=== PATIENT | female | born 1990 | race Caucasian/White ===

== ENCOUNTER 2017-01-26 08:30 | Emergency (ER) | payer OTHER ==
[~2017-01-26] VITALS: Ht 154.9 cm; Wt 65.0 kg
[~2017-01-26 08:30] MED LIST: AMOXICILLIN500 MG OR; AMOXICILLIN500 MG PO; AUGMENTIN500TAB PO; AUGMENTIN875TAB PO; BACTRIM DS1 TAB PO; CIPROFLOXACN500 MG PO; DARVOCET-N 100100 MG OR; KEFLEX500 M1 PO; LORTAB 7.5 PO; METRONIDAZOL500 MG PO; NO HOME MEDS; PAXIL PO; PYRIDIUM200 MG PO; ULTRAM50 M1 PO; WELLBUTRIN150 M1 PO
[2017-01-26] MEDS ORDERED: MOTRIN800 MG PO (08:50)
[2017-01-26] MEDS ORDERED: PREDNISONE10 MG PO (08:50)
[2017-01-26] MEDS ORDERED: BENADRYL 50MG C50 MG PO (08:50)
[2017-01-26] MEDS ORDERED: AFRIN 12 HOUR0.05 % (08:50)
[2017-01-26 08:53] VITALS: BP 113/77
== END 2017-01-26 08:58 | disposition home or self-care (01) | DRG 153 ==
LOC: ED 08:30
DX: J06.9 Acute upper respiratory infection, unspecified (principal); R09.81 Nasal congestion; L29.9 Pruritus, unspecified

== ENCOUNTER 2017-01-30 18:17 | Emergency (ER) | payer OTHER ==
[~2017-01-30] VITALS: Ht 154.9 cm; Wt 60.0 kg
[~2017-01-30 18:17] MED LIST changes: +AFRIN 12 HOUR0.05 %; +BENADRYL 50MG C50 MG PO; +MOTRIN800 MG PO; +PREDNISONE10 MG PO
[2017-01-30 19:09] LABS: INFLUENZA A NONE DETECTED (NONE DETECT); INFLUENZA B NONE DETECTED (NONE DETECT)
[2017-01-30] MEDS ORDERED: ZPAK PO (19:36)
[2017-01-30] MEDS ORDERED: ROBITUSSIN AC10 ML PO (19:36)
[2017-01-30 19:45] VITALS: BP 118/75
== END 2017-01-30 19:45 | disposition home or self-care (01) | DRG 203 ==
LOC: ED 18:17
DX: J40 Bronchitis, not specified as acute or chronic (principal); R06.2 Wheezing; R05 Cough

== ENCOUNTER 2017-06-10 14:54 | Emergency (ER) | payer OTHER ==
[~2017-06-10] VITALS: Ht 154.9 cm; Wt 60.0 kg
[~2017-06-10 14:54] MED LIST changes: +ROBITUSSIN AC10 ML PO; +ZPAK PO
[2017-06-10 15:56] LABS: URINE BILIRUBIN - DIPSTICK NEGATIVE (NEGATIVE); URINE BLOOD DIPSTICK NEGATIVE (NEGATIVE); URINE CLARITY CLEAR; URINE COLOR YELLOW; URINE GLUCOSE - DIPSTICK NEGATIVE (NEGATIVE); URINE KETONE NEGATIVE (NEGATIVE); URINE LEUK ESTERASE NEGATIVE (Negative); URINE NITRITE - DIPSTICK NEGATIVE (Negative); URINE PROTEIN - DIPSTICK NEGATIVE (NEG-TRACE); URINE SPECIFIC GRAVITY 1.015; URINE UROBILINOGEN - DIPSTICK 0.2 E.U./dL (0.2)
[2017-06-10 15:58] LABS: BARBITURATES NEGATIVE (NEGATIVE); COCAINE NEGATIVE (NEGATIVE); METHADONE NEGATIVE (NEGATIVE); OXCYCODONE NEGATIVE (NEGATIVE); TETRAHYDROCANNABIONOL NEGATIVE (NEGATIVE); TRICYLIC ANTIDEPRESSANTS NEGATIVE (NEGATIVE)
[2017-06-10 15:59] LABS: HEMATOCRIT 47.1 % (37.0-47.0); HEMOGLOBIN 15.7 g/dl (12.0-16.0); IMMATURE GRANULOCYTES 0.4 % (0.0-1.0); MEAN CELL VOLUME 90.6 fL CALC (80.0-100.0); MEAN CORPUSCULAR HGB 30.2 pG CALC (26.0-32.0); MEAN CORPUSCULAR HGB CONC 33.3 g/L CALC (32.0-36.0); NEUT# 5.93 thou/uL (2.00-7.15); RED BLOOD COUNT 5.2 mill/uL (4.20-5.60); RED CELL DISTRI WIDTH 12.3 % (11.5-15.5)
[2017-06-10 16:04] LABS: ALKALINE PHOSPHATASE 59 u/l (38-126); ANION GAP 18 (6-22 (CALC)); BILIRUBIN, TOTAL 0.8 mg/dL (0.0-1.4); BUN 9 mg/dL (7-17); BUN/CREATININE RATIO 13 (12-20 (CALC)); CALCIUM 10.3 mg/dL (8.4-10.2); CARBON DIOXIDE 28 mmol/l (22-30); CHLORIDE 105 mmol/l (95-108); CREATININE 0.7 mg/dL (0.5-1.0); GFR > 60 ML/MIN (>=60 (CALC)); GFR FOR AFR.AMER. > 60 ML/MIN (>=60 (CALC)); GLUCOSE 91 mg/dL (65-105); LIPASE 50 u/l (23-300); POTASSIUM 4.4 mmol/l (3.5-5.1); SGOT/AST 29 u/l (14-36); SGPT/ALT 40 u/l (9-52); SODIUM 147 mmol/l (137-146); TOTAL PROTEIN 7.9 g/dL (6.3-8.2)
[2017-06-10 16:48] VITALS: BP 101/56
== END 2017-06-10 17:04 | disposition home or self-care (01) | DRG 103 ==
LOC: ED 14:54
PROVIDERS: Family Medicine
DX: R51 Headache (principal)

== ENCOUNTER 2017-06-16 14:12 | Day surgery (SDC) | payer OTHER ==
[~2017-06-16] VITALS: Ht 154.9 cm; Wt 57.2 kg
[~2017-06-16 14:12] MED LIST changes: +VALTREX500 MG PO
[2017-06-16 18:02] VITALS: BP 98/61
== END 2017-06-16 17:25 | disposition home or self-care (01) | DRG 392 ==
LOC: ENDO 14:12 → ORM 17:15 → ENDO 17:25 → ORM 18:55
PROVIDERS: ATTEND Internal Medicine Gastroenterology
PROC: 0DB98ZX Excision of Duodenum, Via Natural or Artificial Opening Endoscopic, Diagnostic (ICD-10-PCS; principal; 2017-06-16)
PROC: 0DBE8ZX Excision of Large Intestine, Via Natural or Artificial Opening Endoscopic, Diagnostic (ICD-10-PCS; 2017-06-16)
DX: K21.9 Gastro-esophageal reflux disease without esophagitis (principal); K22.8 Other specified diseases of esophagus; R10.13 Epigastric pain; R19.7 Diarrhea, unspecified; K59.00 Constipation, unspecified; R11.0 Nausea; R14.0 Abdominal distension (gaseous); K44.9 Diaphragmatic hernia without obstruction or gangrene; K29.50 Unspecified chronic gastritis without bleeding; K64.8 Other hemorrhoids; K64.4 Residual hemorrhoidal skin tags; K57.30 Diverticulosis of large intestine without perforation or abscess without bleeding; I10 Essential (primary) hypertension; E11.9 Type 2 diabetes mellitus without complications; Z83.71 Family history of colonic polyps; Z80.0 Family history of malignant neoplasm of digestive organs

== ENCOUNTER 2017-10-30 15:32 | Emergency (ER) | payer OTHER ==
[~2017-10-30] VITALS: Ht 154.9 cm; Wt 56.0 kg
[2017-10-30 16:54] LABS: HEMATOCRIT 45.2 % (37.0-47.0); HEMOGLOBIN 14.9 g/dl (12.0-16.0); IMMATURE GRANULOCYTES 0.3 % (0.0-1.0); MEAN CELL VOLUME 91.5 fL CALC (80.0-100.0); MEAN CORPUSCULAR HGB 30.2 pG CALC (26.0-32.0); NEUT# 4.47 thou/uL (2.00-7.15); RED BLOOD COUNT 4.94 mill/uL (4.20-5.60); RED CELL DISTRI WIDTH 12.5 % (11.5-15.5)
[2017-10-30 17:20] LABS: ALBUMIN 4.8 g/dL (3.2-5.0); ALKALINE PHOSPHATASE 59 u/l (38-126); ANION GAP 17 (6-22 (CALC)); BILIRUBIN, TOTAL 0.6 mg/dL (0.0-1.4); BUN 15 mg/dL (7-17); BUN/CREATININE RATIO 20 (12-20 (CALC)); CALCIUM 10.3 mg/dL (8.4-10.2); CARBON DIOXIDE 27 mmol/l (22-30); CHLORIDE 103 mmol/l (95-108); CREATININE 0.8 mg/dL (0.5-1.0); GFR > 60 ML/MIN (>=60 (CALC)); GFR FOR AFR.AMER. > 60 ML/MIN (>=60 (CALC)); GLUCOSE 91 mg/dL (65-105); LIPASE 114 u/l (23-300); POTASSIUM 3.7 mmol/l (3.5-5.1); SGOT/AST 37 u/l (14-36); SGPT/ALT 44 u/l (9-52); SODIUM 143 mmol/l (137-146); TOTAL PROTEIN 7.8 g/dL (6.3-8.2)
[2017-10-30 17:27] LABS: URINE BILIRUBIN - DIPSTICK NEGATIVE (NEGATIVE); URINE BLOOD DIPSTICK NEGATIVE (NEGATIVE); URINE COLOR YELLOW; URINE GLUCOSE - DIPSTICK NEGATIVE (NEGATIVE); URINE KETONE TRACE mg/dL (NEGATIVE); URINE LEUK ESTERASE NEGATIVE (NEGATIVE); URINE NITRITE - DIPSTICK NEGATIVE (Negative); URINE PH 6.5 (4.5-8.0); URINE PROTEIN - DIPSTICK NEGATIVE (NEG-TRACE); URINE SPECIFIC GRAVITY 1.025; URINE UROBILINOGEN - DIPSTICK 0.2 E.U./dL (0.2)
[2017-10-30 17:28] LABS: URINE CLARITY HAZY
[2017-10-30] MEDS ORDERED: RANITIDINE 150150 MG PO (18:22)
[2017-10-30 18:32] VITALS: BP 99/61
== END 2017-10-30 18:32 | disposition home or self-care (01) | DRG 392 ==
LOC: ED 15:32
PROVIDERS: Family Medicine
DX: R10.13 Epigastric pain (principal); R11.2 Nausea with vomiting, unspecified
CPT/HCPCS: Q9967

== ENCOUNTER 2019-02-20 07:51 | Emergency (ER) | payer OTHER ==
[~2019-02-20] VITALS: Ht 154.9 cm; Wt 50.0 kg
[~2019-02-20 07:51] MED LIST changes: +RANITIDINE 150150 MG PO
[2019-02-20 08:33] LABS: HEMOGLOBIN 14.5 g/dl (12.0-16.0); IMMATURE GRANULOCYTES 0.4 % (0.0-5.0); MEAN CELL VOLUME 90.9 fL CALC (80.0-100.0); NEUT# 3.35 thou/uL (2.00-7.15); RED BLOOD COUNT 4.84 mill/uL (4.20-5.60); RED CELL DISTRI WIDTH 12.7 % (11.5-15.5); URINE BLOOD DIPSTICK NEGATIVE (NEGATIVE); URINE COLOR YELLOW; URINE GLUCOSE - DIPSTICK NEGATIVE (NEGATIVE); URINE KETONE >=80 mg/dL (NEGATIVE); URINE LEUK ESTERASE NEGATIVE (NEGATIVE); URINE NITRITE - DIPSTICK NEGATIVE (Negative); URINE PH 5.5 (4.5-8.0); URINE PROTEIN - DIPSTICK TRACE mg/dL (NEG-TRACE); URINE SPECIFIC GRAVITY >=1.030; URINE UROBILINOGEN - DIPSTICK 0.2 E.U./dL (0.2)
[2019-02-20 08:38] LABS: URINE BILIRUBIN - DIPSTICK NEGATIVE (NEGATIVE)
[2019-02-20 08:50] LABS: ANION GAP 16 (6-22 (CALC)); BUN 17 mg/dL (7-17); BUN/CREATININE RATIO 23 (12-20 (CALC)); CARBON DIOXIDE 24 mmol/l (22-30); CHLORIDE 105 mmol/l (95-108); CREATININE 0.8 mg/dL (0.5-1.0); GFR > 60 ML/MIN (>=60 (CALC)); GFR FOR AFR.AMER. > 60 ML/MIN (>=60 (CALC)); SODIUM 141 mmol/l (137-146)
[2019-02-20 09:21] VITALS: BP 124/83
== END 2019-02-20 09:28 | disposition home or self-care (01) | DRG 103 ==
LOC: ED 07:51
PROVIDERS: Family Medicine
DX: R51 Headache (principal); K52.9 Noninfective gastroenteritis and colitis, unspecified

== ENCOUNTER 2019-11-19 17:15 | Emergency (ER) | payer OTHER ==
[~2019-11-19 17:15] MED LIST changes: +BUSPIRONE5 MG PO
[2019-11-19 17:28] VITALS: BP 116/78
== END 2019-11-19 18:28 | disposition left against medical advice (07) | DRG 951 ==
LOC: ED 17:15 → LWOBS 18:20
DX: Z53.21 Procedure and treatment not carried out due to patient leaving prior to being seen by health care provider (principal)

== ENCOUNTER 2022-08-09 09:54 | Emergency (ER) | payer OTHER, MEDICAID ==
[~2022-08-09] VITALS: Ht 157.5 cm; Wt 52.1 kg
[~2022-08-09 09:54] MED LIST changes: +COLACE100 MG PO; +SIMETHICONE80 M2 PO
[2022-08-09 10:55] LABS: HEMATOCRIT 40.8 % (37.0-47.0); HEMOGLOBIN 13.5 g/dl (12.0-16.0); IMMATURE GRANULOCYTES 0.2 % (0.0-5.0); MEAN CELL VOLUME 89.5 fL CALC (80.0-100.0); MEAN CORPUSCULAR HGB 29.6 pG CALC (26.0-32.0); MEAN CORPUSCULAR HGB CONC 33.1 g/dL CAL (32.0-36.0); NEUT# 2.99 thou/uL (2.00-7.15); RED BLOOD COUNT 4.56 mill/uL (4.20-5.60)
[2022-08-09 11:08] LABS: ALBUMIN 4.5 g/dL (3.2-5.0); ALKALINE PHOSPHATASE 41 u/l (38-126); ANION GAP 14 (6-22 (CALC)); BILIRUBIN, TOTAL 0.6 mg/dL (0.0-1.4); BUN 10 mg/dL (7-17); BUN/CREATININE RATIO 14 (12-20 (CALC)); CARBON DIOXIDE 26 mmol/l (22-30); CHLORIDE 104 mmol/l (95-108); CREATININE 0.7 mg/dL (0.5-1.0); GFR FOR AFR.AMER. > 60 ML/MIN (>=60 (CALC)); GFR OTHER RACES > 60 ML/MIN (>=60 (CALC)); SGOT/AST 25 u/l (14-36); SODIUM 140 mmol/l (137-146); TOTAL PROTEIN 7.4 g/dL (6.3-8.2)
[2022-08-09 13:20] VITALS: BP 118/89
== END 2022-08-09 13:27 | disposition home or self-care (01) | DRG 310 ==
LOC: ED 09:54
PROVIDERS: Family Medicine
DX: R00.2 Palpitations (principal)

== ENCOUNTER 2022-11-26 20:17 | Emergency (ER) | payer OTHER, MEDICAID ==
[2022-11-26] VITALS (12 sets, daily range): BP systolic 98–119; BP diastolic 63–86
[~2022-11-26] VITALS: Ht 154.9 cm; Wt 45.0 kg
[2022-11-26 21:25] LABS: URINE BILIRUBIN - DIPSTICK NEGATIVE (NEGATIVE); URINE BLOOD DIPSTICK NEGATIVE (NEGATIVE); URINE COLOR YELLOW; URINE GLUCOSE - DIPSTICK NEGATIVE (NEGATIVE); URINE KETONE NEGATIVE (NEGATIVE); URINE LEUK ESTERASE NEGATIVE (NEGATIVE); URINE PROTEIN - DIPSTICK NEGATIVE (NEG-TRACE); URINE SPECIFIC GRAVITY 1.015; URINE UROBILINOGEN - DIPSTICK 0.2 E.U./dL (0.2)
[2022-11-26 21:26] LABS: BASO% 0.8 % (0-3); EOS% 1.7 % (0-8); HEMATOCRIT 41.5 % (37.0-47.0); HEMOGLOBIN 13.9 g/dl (12.0-16.0); LYMPH% 39.4 % (15-41); MEAN CELL VOLUME 89.4 fL CALC (80.0-100.0); MEAN CORPUSCULAR HGB CONC 33.5 g/dL CAL (32.0-36.0); MONO% 8.6 % (2-13); NEUT# 2.59 thou/uL (2.00-7.15); NEUT% 49.5 % (42-76); RED BLOOD COUNT 4.64 mill/uL (4.20-5.60); RED CELL DISTRI WIDTH 12.2 % (11.5-15.5)
[2022-11-26 21:27] LABS: URINE NITRITE - DIPSTICK NEGATIVE (Negative)
[2022-11-26 21:36] LABS: ALBUMIN 4.7 g/dL (3.2-5.0); ALKALINE PHOSPHATASE 39 u/l (38-126); AMYLASE 71 u/l (30-110); ANION GAP 10 (6-22 (CALC)); BILIRUBIN, TOTAL 0.4 mg/dL (0.02-1.3); BUN 10 mg/dL (7-17); BUN/CREATININE RATIO 13 (12-20 (CALC)); CARBON DIOXIDE 27 mmol/l (22-30); CHLORIDE 106 mmol/l (95-108); CREATININE 0.7 mg/dL (0.5-1.0); GFR FOR AFR.AMER. > 60 ML/MIN (>=60 (CALC)); GFR OTHER RACES > 60 ML/MIN (>=60 (CALC)); LIPASE 93 u/l (23-300); POTASSIUM 3.5 mmol/l (3.5-5.1); SGOT/AST 24 u/l (14-36); SODIUM 138 mmol/l (137-146); TOTAL PROTEIN 7.5 g/dL (6.3-8.2)
[2022-11-26] MEDS ORDERED: MIRALAX17 GM PO (23:58)
[2022-11-27] VITALS: BP 93/65
[2022-11-27 00:10] VITALS: BP 93/65
== END 2022-11-27 00:23 | disposition home or self-care (01) | DRG 392 ==
LOC: ED 20:17
PROVIDERS: Emergency Medicine
DX: K59.00 Constipation, unspecified (principal); R10.9 Unspecified abdominal pain
CPT/HCPCS: Q9967

== ENCOUNTER 2024-04-12 06:36 | Day surgery (SDC) | payer OTHER ==
[~2024-04-12] VITALS: Ht 157.5 cm; Wt 48.4 kg
[~2024-04-12 06:36] MED LIST changes: +MIRALAX17 GM PO; +SLOW-MAG PO; +VALTREX1 GM PO; +[UNRECOGNIZED DRUG - OTHER] PO
[2024-04-12] MEDS ORDERED: FAMOTIDINE 10MG/ML 2ML SDV IV ONE (06:53)
[2024-04-12] MEDS ORDERED: LACTATED RINGER'S 1,000 ML IV ONE (06:53)
[2024-04-12] MEDS ORDERED: SIMETHICONE 20 MG/0.3 ML PO ONE (07:05)
[2024-04-12] MEDS ORDERED: GLYCOPYRROLATE 0.2 MG/ML IV ONE (09:39)
[2024-04-12] MEDS ORDERED: LIDOCAINE HCL 2% 2ML SDV IV ONE (09:39)
[2024-04-12] MEDS ORDERED: PROPOFOL 500 MG/50 ML VIAL IV ONE (09:39)
[2024-04-12 10:04] VITALS: BP 93/69
== END 2024-04-12 08:50 | disposition home or self-care (01) ==
LOC: ENDO 06:36 → ORM 10:00
PROVIDERS: ATTEND Internal Medicine Gastroenterology
DX: Z12.11 Encounter for screening for malignant neoplasm of colon (principal); K57.30 Diverticulosis of large intestine without perforation or abscess without bleeding; K64.8 Other hemorrhoids; K58.1 Irritable bowel syndrome with constipation; K29.70 Gastritis, unspecified, without bleeding; K31.89 Other diseases of stomach and duodenum; Z80.0 Family history of malignant neoplasm of digestive organs